=== PATIENT | female | born 1980 | race African-American/Black ===

== ENCOUNTER 2017-12-17 00:23 | Emergency (ER) | payer OTHER ==
[2017-12-17 00:47] VITALS: BP 100/74
--- NOTE | 2017-12-17 00:48 | ED Physician Documentation ---
General Adult - HISTORIAN Historian: patient - HPI Stated Complaint: flu llq abd pain headache sorethroaat Chief Complaint: Headache Additional Information: c/o onset 2 days ago llq abd pain headache sore throat feels got it at work several employs w/similar. bowwels kidneys ok can eat some no sig fever but occ chills has had flu vaccine Onset: days ago (2) Timing: still present, worse Severity: moderate - ROS CONST: fever, sweating, weakness EYES/ENT: sore throat. denies: problems with vision, nasal drainage, nasal congestion CVS/RESP: denies: chest pain, shortness of breath, cough GI/: abdominal pain (llq) MS/SKIN/LYMPH: back pain. denies: swollen glands, leg pain NEURO/PSYCH: headache - PAST HX Past History: none Surgeries/Procedures: other (c sect) Allergies/Adverse Reactions: Allergies Allergy/AdvReac Type Severity Reaction Status Date / Time No Known Allergies Allergy Verified 12/17/17 00:40 Home Medications: Ambulatory Orders Medication Instructions Recorded Ferrous Gluconate [Iron] 236 mg PO D 12/17/17 - SOCIAL HX Smoking History: cigarettes Alcohol Use: none Drug Use: none - FAMILY HX Family History: No - REVIEWED ASSESSMENTS Nursing Assessment Reviewed: Yes Vitals Reviewed: Yes General Adult Physical Exam - PHYSICAL EXAM GENERAL APPEARANCE: mild distress EENT: eye inspection normal NECK: normal inspection, lymphadenopathy (slight min tender) RESPIRATORY: no resp distress, breath sounds normal CVS: reg rate & rhythm, heart sounds normal ABDOMEN: soft, non-tender BACK: normal inspection SKIN: warm/dry, normal color. No: cyanosis, diaphoresis, jaundice, mottled EXTREMITIES: non-tender, normal range of motion NEURO: oriented X3, motor nml, sensation nml, mood/affect nml Discharge Clincal Impression: Influenza Condition: Fair Disposition: HOME, SELF-CARE Decision to Admit: NO Decision Time: 00:50
== END 2017-12-17 00:47 | disposition home or self-care (01) ==
LOC: ED 00:23
DX: J11.89 Influenza due to unidentified influenza virus with other manifestations (principal)
CPT/HCPCS: 99282